=== PATIENT | male | born 1990 | race Caucasian/White ===

== ENCOUNTER 2022-12-07 02:35 | Emergency (ER) | payer SELFPAY ==
[2022-12-07 02:56] VITALS: BP 142/79; PULSE 61; RESP 20; TEMP 37.1; O2SAT 95; BMI 26.5
[2022-12-07] MEDS: sodium chloride 0.9% 1,000 ML 999 ML IV (03:11)
[2022-12-07 03:12] LABS: Basophils # 0.1 10^3/uL (0.0-0.1); Basophils % 0.6 %; Eosinophils # 0.3 10^3/uL (0.0-0.8); Eosinophils % 2.5 %; Hematocrit 43.4 % (42.0-52.0); Hemoglobin 14.9 g/dL (11.7-16.6); Lymphocytes # 1.1 10^3/uL (0.8-4.8); Lymphocytes % 10.9 %; Mean Corpuscular HGB Conc 34.3 g/dL (30.0-36.0); Mean Corpuscular Hemoglobin 31.2 pg (28.0-34.0); Mean Corpuscular Volume 90.8 fl (80-94); Monocytes # 0.4 10^3/uL (0.2-0.9); Monocytes % 3.8 %; Neutrophils # 8.33 10^3/uL (1.8-7.7); Nucleated Red Blood Cells % 0 %; Platelet Count 268 10^3/cmm (130-400); Red Blood Count 4.78 10^6/uL (4.1-5.3); Red Cell Distribution Width 12.3 % (12.1-15.1); White Blood Count 10.2 10^3/uL (4.0-10.0)
[2022-12-07 03:23] LABS: Alanine Aminotransferase 17 U/L (0-41); Albumin Level 4.7 g/dL (3.5-5.2); Alkaline Phosphatase 69 U/L (40-130); Anion Gap 15.1 (5-19); Aspartate Amino Transferase 17 U/L (0-40); Blood Urea Nitrogen 10 mg/dL (6-20); Calcium 9.4 mg/dL (8.5-10.5); Carbon Dioxide 24 mmol/L (22-29); Chloride 103 mmol/L (98-107); Globulin 2.3 g/dL (1.3-4.6); Glomerular Filtration Rate 129.9 mL/min (90-130); Glucose 129 mg/dL (65-115); Lipase 21 U/L (13-60); Osmolality Calculated 287 mOsm/kg (285-295); Potassium 4.1 mmol/L (3.5-5.1); Sodium 138 mmol/L (136-145); Total Bilirubin 0.6 mg/dL (0.15-1.2)
[2022-12-07] MEDS: ondansetron 2 mg/ML SDV 2 mL 4 MG IVP (03:33)
[2022-12-07] MEDS: ketorolac 30 mg/mL INJ 15 MG IVP (03:33)
--- NOTE | 2022-12-07 03:33 | W.ED.ABDPA2 ---
HPI - Abdominal Pain General: Chief Complaint: Abdominal Pain Stated Complaint: abd pain Time Seen by Provider: 12/07/22 02:57 Source: patient History of Present Illness: 32-year-old male, healthy, presenting with upper abdominal pain for the past couple of days with 2 episodes of vomiting today. No fever. No diarrhea. No blood in the stool. No history of prior belly surgery. MD elicited complaint: abdominal pain Pertinent past history: none Onset (ago): day(s) Pain Consistency: intermittent Location: Epigastric Radiation: none Migration to: no migration Exacerbating factors: eating Relieving factors: nothing Associated Symptoms: Reports vomiting; Denies change in stool character, diarrhea, fever(s), heartburn, hematochezia and hematemesis Review of Systems Const: Denies: fever(s) ENMT: Denies: throat pain Card: Denies: chest pain Resp: Denies: dyspnea GI: Reports: abdominal pain and vomiting; Denies: hematemesis, heartburn, diarrhea, change in stool character or hematochezia Musc: Denies: back pain Physical Exam Const: COMMON NORMALS: no acute distress GENERAL APPEARANCE: cooperative; not ill appearing and not frail appearing HENMT: COMMON NORMALS: normocephalic, atraumatic and Normal external nose present HEAD & SCALP: normocephalic and atraumatic FACE & SINUS: normal facial exam and face symmetric NOSE: Normal external nose present Eye: COMMON NORMALS: Equal, round and reactive pupils present and EOMs intact bilaterally PUPIL: Yes Equal, round and reactive pupils present Neck/C-Spine: GENERAL: Yes trachea midline Chest: CHEST: Yes Symmetrical chest wall rise Resp: COMMON NORMALS: normal respiratory effort, No retractions, No use of accessory muscles and clear to auscultation bilaterally AUSCULTATION: clear to auscultation bilaterally Cardio: COMMON NORMALS: regular rate and regular rhythm RATE: regular rate RHYTHM: regular rhythm GI: COMMON NORMALS: Normal to inspection, nondistended, normoactive bowel sounds present PALPATION: Yes Tenderness to palpation present (GI) (Minimal and epigastrium) and No Guarding due to palpation present (GI) Extremity: COMMON NORMALS: no pedal edema Neuro: RENU COMA SCALE: document GCS findings [place] coma scale eye opening: Spontaneous [place] coma scale verbal response: Orientated Renu coma scale motor response: Obey commands [place] coma scale total score: 15 SENSORY EXAM: Yes extremities (intact) Psych: COMMON NORMALS: speech normal SPEECH: Yes normal speech Skin: COMMON NORMALS: no rashes or lesions noted GENERAL SKIN EXAM: no rashes or lesions noted Course Vital Signs: Vital signs: Vital Signs Temperature 98.7 F 12/07/22 02:56 Pulse Rate 61 12/07/22 02:56 Respiratory Rate 20 H 12/07/22 02:56 Blood Pressure 142/79 12/07/22 02:56 Pulse Oximetry 95 12/07/22 02:56 Oxygen Delivery Me thod Room Air 12/07/22 02:56 MDM - Abdominal Pain Medical Decision Making White blood cell count is 10. No significant left shift. Other laboratory is not remarkable including liver enzymes. CRP is 3. He is getting a liter of fluids, Toradol and Zofran. We will also give him a GI cocktail. Likely gastritis given symptoms. Outpatient follow-up, return for worsening. Lab Data 12/07/22 03:05 12/07/22 03:05 Labs/Radiology: Laboratory Results WBC 10.2 10^3/uL (4.0-10.0) H 12/07/22 03:05 RBC 4.78 10^6/uL (4.1-5.3) 12/07/22 03:05 Hgb 14.9 g/dL (11.7-16.6) 12/07/22 03:05 Hct 43.4 % (42.0-52.0) 12/07/22 03:05 MCV 90.8 fl (80-94) 12/07/22 03:05 MCH 31.2 pg (28.0-34.0) 12/07/22 03:05 MCHC 34.3 g/dL (30.0-36.0) 12/07/22 03:05 RDW 12.3 % (12.1-15.1) 12/07/22 03:05 Plt Count 268 10^3/cmm (130-400) 12/07/22 03:05 MPV 10.0 fL (7.4-10.4) 12/07/22 03:05 Neut % (Auto) 82.0 % 12/07/22 03:05 Lymph % (Auto) 10.9 % 12/07/22 03:05 [place]ahan % (Auto) 3.8 % 12/07/22 03:05 Eos % (Auto) 2.5 % 12/07/22 03:05 Baso % (Auto) 0.6 % 12/07/22 03:05 Neut # (Auto) 8.33 10^3/uL (1.8-7.7) H 12/07/22 03:05 Lymph # (Auto) 1.1 10^3/uL (0.8-4.8) 12/07/22 03:05 [place]ahan # (Auto) 0.4 10^3/uL (0.2-0.9) 12/07/22 03:05 Eos # (Auto) 0.3 10^3/uL (0.0-0.8) 12/07/22 03:05 Baso # (Auto) 0.1 10^3/uL (0.0-0.1) 12/07/22 03:05 Nucleated RBC % (auto) 0 % 12/07/22 03:05 Nucleated RBCs # 0.0 /100WBC 12/07/22 03:05 Sodium 138 mmol/L (136-145) 12/07/22 03:05 Potassium 4.1 mmol/L (3.5-5.1) 12/07/22 03:05 Chloride 103 mmol/L (98-107) 12/07/22 03:05 Carbon Dioxide 24 mmol/L (22-29) 12/07/22 03:05 Anion Gap 15.1 (5-19) 12/07/22 03:05 BUN 10 mg/dL (6-20) 12/07/22 03:05 Creatinine 0.7 mg/dL (0.7-1.2) 12/07/22 03:05 GFR Calculation 129.9 mL/min (90-130) 12/07/22 03:05 Glucose 129 mg/dL (65-115) H 12/07/22 03:05 Calculated Osmolality 287 mOsm/kg (285-295) 12/07/22 03:05 Calcium 9.4 mg/dL (8.5-10.5) 12/07/22 03:05 Total Bilirubin 0.6 mg/dL (0.15-1.2) 12/07/22 03:05 AST 17 U/L (0-40) 12/07/22 03:05 ALT 17 U/L (0-41) 12/07/22 03:05 Alkaline Phosphatase 69 U/L (40-130) 12/07/22 03:05 C-Reactive Protein 3.0 mg/L (0.0-4.9) 12/07/22 03:05 Total Protein 7.0 g/dL (6.6-8.7) 12/07/22 03:05 Albumin 4.7 g/dL (3.5-5.2) 12/07/22 03:05 Globulin 2.3 g/dL (1.3-4.6) 12/07/22 03:05 Lipase 21 U/L (13-60) 12/07/22 03:05 Urine Color Yellow (Yellow) 12/07/22 03:21 Urine Appearance Hazy (CLEAR) A 12/07/22 03:21 Urine pH 5 (5-7) 12/07/22 03:21 Ur Specific [place] 1.030 (1.005-1.030) 12/07/22 03:21 Urine Protein Trace (Negative) 12/07/22 03:21 Urine Glucose (UA) Norm (Normal) 12/07/22 03:21 Urine Ketones Negative (Negative) 12/07/22 03:21 Urine Blood Neg (Negative) 12/07/22 03:21 Urine Nitrate Negative (Negative) 12/07/22 03:21 Urine Bilirubin 1+ (Negative) H 12/07/22 03:21 Urine Urobilinogen 1 mg/dL (Negative) H 12/07/22 03:21 Ur Leukocyte Esterase Negative (Negative) 12/07/22 03:21 Urine RBC 0-4 /hpf (0-2) H 12/07/22 03:21 Urine WBC 0-4 /hpf (0-5) H 12/07/22 03:21 Ur Squamous Epith Cells 0-4 /hpf (0-5) H 12/07/22 03:21 Amorphous Sediment Not Reportable 12/07/22 03:21 Urine Bacteria 1+ /hpf (NONE) H 12/07/22 03:21 Urine Mucus 2+ /hpf 12/07/22 03:21 Discharge Plan Discharge Patient Disposition: Home Clinical Impression: Gastritis Condition: Stable Prescriptions: New Prevacid 30 mg capsule,delayed release(DR/EC) 30 mg PO DAILY Qty: 30 0RF ondansetron 4 mg film 4 mg PO DAILY PRN (Reason: nausea and vomiting) Qty: 10 0RF Discharge Orders: Discharge ED (Routine); Ordered 12/07/22 Ordered By: Be Leung Patient Instructions: Gastritis (ED), Pain Management Activity Restrictions/Additional Instructions: Follow a clear liquid diet for the next 24 to 48 hours, then slowly add solid foods back into your diet. Medications as directed. Return for fever greater than 100, vomiting liquids or medications despite treatment, increasing pain despite treatment, other concerning symptoms. Follow-up with your doctor next week. Coding Level of Care Code ED Grinder Set Up Operator for Wei Moody
[2022-12-07 03:40] LABS: Add Urine Microscopic? YES; Bilirubin Urine 1+ (Negative); Blood Urine Neg (Negative); Glucose Urine UA Norm (Normal); Ketones Urine Negative (Negative); Leukocyte Esterase Urine Negative (Negative); Nitrate Urine Negative (Negative); Protein Urine Trace (Negative); Urine Appearance Hazy (CLEAR); Urine Color Yellow (Yellow); Urobilinogen Urine 1 mg/dL (Negative); pH Urine 5 (5-7)
[2022-12-07 03:41] LABS: Bacteria Urine 1+ /hpf; Mucus Urine 2+ /hpf; RBC Urine 0-4 /hpf (0-2); Squamous Epithelial Cell Urine 0-4 /hpf (0-5); WBC Urine 0-4 /hpf (0-5)
[2022-12-07] MEDS: lidocaine 2% viscous 15 ML, aluminum-mag hydrox-simethicon 30 ML, sucralfate oral liq 1 GM PO (03:48)
[2022-12-07 03:54] VITALS: BP 142/79; PULSE 69; RESP 16; O2SAT 99
[2022-12-07 03:59] VITALS: BP 142/79; PULSE 69; RESP 16; TEMP 37.1; O2SAT 99
== END 2022-12-07 03:59 | disposition home or self-care (01) ==
PROVIDERS: Emergency Provider Emergency Medicine
DX: K29.70 Gastritis, unspecified, without bleeding (principal)
CPT/HCPCS: 80053; 81001; 83690; 85025; 86140; 96361; 96374; 96375; 99284; J1885; J2405; J7030